=== PATIENT | male | born 1960 | race Caucasian/White ===

== ENCOUNTER 2017-10-09 12:54 | Emergency (ER) | payer OTHER ==
[2017-10-09] MEDS ORDERED: Adacel (T-DAP) 0.5 ML VIAL ONE (13:01)
[2017-10-09] MEDS ORDERED: Bacitracin Zinc 1 Packet ONE (13:26)
[2017-10-09] MEDS ORDERED: Sulfameth/Trimethoprim DS 800-160mg TAB ONE (13:38)
== END 2017-10-09 13:41 | disposition home or self-care (01) ==
LOC: BURERS 12:54
DX: S71.112A Laceration without foreign body, left thigh, initial encounter (principal); F17.220 Nicotine dependence, chewing tobacco, uncomplicated; W29.3XXA Contact with powered garden and outdoor hand tools and machinery, initial encounter
CPT/HCPCS: 12002; 90471; 90715

== ENCOUNTER 2017-10-18 11:10 | Emergency (ER) | payer OTHER ==
[2017-10-18] MEDS ORDERED: Triple Antibiotic Oint 1 GM Packet ONE (11:35)
== END 2017-10-18 11:40 | disposition home or self-care (01) ==
LOC: BURERS 11:10
DX: S71.112D Laceration without foreign body, left thigh, subsequent encounter (principal); F17.220 Nicotine dependence, chewing tobacco, uncomplicated; W27.8XXD Contact with other nonpowered hand tool, subsequent encounter